=== PATIENT | female | born 1940 | race Caucasian/White ===

== ENCOUNTER 2022-12-27 19:00 | Outpatient (CLI) | payer MEDICARE | END 2022-12-27 19:01 | disposition home or self-care (01) | LOC: SLEEPLAB 19:00 | PROVIDERS: ATTEND Internal Medicine Cardiovascular Disease | DX: G47.33 Obstructive sleep apnea (adult) (pediatric) (principal); R53.83 Other fatigue; I10 Essential (primary) hypertension; E66.9 Obesity, unspecified | CPT/HCPCS: 95810 ==

== ENCOUNTER 2023-02-13 17:00 | Outpatient (CLI) | payer MEDICARE | END 2023-02-13 17:01 | disposition home or self-care (01) | LOC: SLEEPLAB 17:00 | PROVIDERS: ATTEND Internal Medicine Cardiovascular Disease | DX: G47.33 Obstructive sleep apnea (adult) (pediatric) (principal); R53.83 Other fatigue; E66.9 Obesity, unspecified; I10 Essential (primary) hypertension; R06.83 Snoring; G47.10 Hypersomnia, unspecified; I48.91 Unspecified atrial fibrillation; Z68.42 Body mass index [BMI] 45.0-49.9, adult | CPT/HCPCS: 95811 ==